=== PATIENT | male | born 1995 | race African-American/Black ===

== ENCOUNTER 2017-01-26 07:54 | Emergency (ER) | payer OTHER ==
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
== END 2017-01-26 07:59 | disposition short-term general hospital (02) ==
LOC: ER 07:54
PROC: 0JHP3XZ Insertion of Tunneled Vascular Access Device into Left Lower Leg Subcutaneous Tissue and Fascia, Percutaneous Approach (ICD-10-PCS; principal; 2017-01-26)
DX: S71.102A Unspecified open wound, left thigh, initial encounter (principal); S71.101A Unspecified open wound, right thigh, initial encounter; T79.4XXA Traumatic shock, initial encounter; I95.89 Other hypotension; W34.00XA Accidental discharge from unspecified firearms or gun, initial encounter
CPT/HCPCS: 31500; 36415; 86850; 86900; 86901; 86920; 94002; 99291; C1894; J0330; P9016; P9040